=== PATIENT | female | born 1975 | race Caucasian/White ===

== ENCOUNTER 2024-06-19 19:38 | Emergency (ER) | payer OTHER ==
[2024-06-19] MEDS ORDERED: ACETAMINOPHEN 325 MG TABLET ONE (20:17)
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
[2024-06-19 22:25] VITALS: TEMP 98.1
[2024-06-19 22:28] VITALS: BP 138/84; O2SAT 98
== END 2024-06-19 22:09 | disposition home or self-care (01) ==
LOC: ER 19:38
DX: M54.2 Cervicalgia (principal); V43.53XA Car driver injured in collision with pick-up truck in traffic accident, initial encounter; Y92.89 Other specified places as the place of occurrence of the external cause
CPT/HCPCS: 70450; 72125; 99284